=== PATIENT | female | born 1970 | race Caucasian/White ===

== ENCOUNTER 2019-03-30 09:18 | Emergency (ER) | payer MEDICAID ==
[~2019-03-30] VITALS: Ht 162.6 cm; Wt 65.9 kg
[2019-03-30] MEDS ORDERED: AMOX-101 PO (10:39)
[2019-03-30] MEDS ORDERED: FLUC150T66 PO (10:50)
[2019-03-30 10:53] VITALS: BP 118/72
== END 2019-03-30 10:54 | disposition home or self-care (01) ==
LOC: ER 09:19
DX: J02.9 Acute pharyngitis, unspecified (principal); Z79.2 Long term (current) use of antibiotics
CPT/HCPCS: 87081; 87880; 99283

== ENCOUNTER 2021-05-19 09:25 | Emergency (ER) | payer MEDICAID ==
[~2021-05-19] VITALS: Ht 162.6 cm; Wt 68.2 kg
[2021-05-19 11:37] VITALS: BP 120/70
== END 2021-05-19 12:55 | disposition home or self-care (01) ==
LOC: ER 09:27
DX: U07.1 COVID-19 (principal); R06.02 Shortness of breath; R05.9 Cough, unspecified; R42 Dizziness and giddiness; R50.9 Fever, unspecified; R11.2 Nausea with vomiting, unspecified; R19.7 Diarrhea, unspecified
CPT/HCPCS: 99282